=== PATIENT | female | born 1955 | race Asian ===

== ENCOUNTER 2016-12-04 21:06 | Emergency (ER) | payer MEDICAID ==
[~2016-12-04] VITALS: Ht 157.5 cm; Wt 67.1 kg
[2016-12-04 21:15] VITALS: BP_SYST 139
[2016-12-04] MEDS ORDERED: ONDANSETRON 4 MG ODT TAB PO ONE (21:45)
[2016-12-04] MEDS ORDERED: KETOROLAC TROMETHAMINE 60 MG/2 ML VIAL IM ONE (21:45)
[2016-12-05] MEDS ORDERED: MORPHINE 4 MG/ML INJ. SYRINGE IM ONE
[2016-12-05 00:14] VITALS: BP_SYST 120
== END 2016-12-05 00:14 | disposition home or self-care (01) ==
LOC: SED 21:06
DX: M54.5 Low back pain (principal); E11.9 Type 2 diabetes mellitus without complications; W19.XXXA Unspecified fall, initial encounter; Y93.89 Activity, other specified; Y92.89 Other specified places as the place of occurrence of the external cause; Y99.8 Other external cause status
CPT/HCPCS: 72100; 96372; 99284; J1885; J2270; Q0162